=== PATIENT | female | born 1980 | race American Indian/Alaskan Native ===

== ENCOUNTER 2016-11-20 07:32 | Day surgery (SDC) | payer OTHER, MEDICAID ==
[2016-11-19 10:53] VITALS: BMI 64.2
[2016-11-20] MEDS ORDERED: Propofol 10 mg/ml Inj (20 ML) ONE ×2 (07:49→10:29)
[2016-11-20] MEDS ORDERED: Lidocaine Hydrochloride 5 ML INJ ONE (07:50)
[2016-11-20] MEDS ORDERED: Midazolam 2 MG/2 ML VIAL ONE (07:50)
[2016-11-20] MEDS ORDERED: Lidocaine 2% Jelly (5 ml) TOP ONE (07:50)
[2016-11-20] MEDS ORDERED: Lidocaine 1% Inj (20ml) ONE (08:05)
[2016-11-20] MEDS ORDERED: Bupivacaine 0.5% Inj(30mL) ONE (08:05)
[2016-11-20] MEDS ORDERED: MethylPREDNISolone Depo 40 mg/ml Inj ONE (08:05)
[2016-11-20] MEDS ORDERED: SENSORCAINE 0.5% W/EPINEPHRINE 50ML MDV IJ ONE (08:25)
[2016-11-20] MEDS ORDERED: Lactated Ringer's 1,000 ML IV ONE (08:27)
[2016-11-20] MEDS ORDERED: Succinylcholine 200 mg/10 ml Inj IV ONE (09:48)
[2016-11-20] MEDS ORDERED: Lidocaine 4% (Laryng-O-Jet) Kit MM ONE (09:49)
--- NOTE | 2016-11-20 09:55 | CP.SDSHP ---
Same Day Surgery H & P - History Proposed Procedure: Right Knee arthroscopy, possible ACL recon Pre-Op Diagnosis: right knee meniscal tear, possible ACL tear - Previous Medical/Surgical History Comments: morbid obesity. neck and low back pain Previous Surgical History: epidural injections to cervical and lumbar spine - Allergies Allergies: Allergies No Known Allergies Allergy (Verified 11/19/16 10:53) - Physical Exam Vital Signs: Vital Signs 11/20/16 11/20/16 08:03 08:05 Temperature 98.9 F Pulse Rate 84 84 Respiratory 20 Rate Blood Pressure 129/76 O2 Sat by Pulse 98 Oximetry Mental Status: Alert & Oriented x3 Heart: WNL Lungs: WNL GI: WNL - {Optional Preform as Required} Ortho: Other (Right knee: +ROm ankle/toes, sensation intact, +DP pulse, calves soft NT neg homans) Other Pertinent Findings: MRI at outside facility. medical clearance and labs on chart, reviewed - Impression Impression: 36F with right knee meniscal tear for arthroscopy, possible ACL recon Pt. Evaluated Today:Candidate for Anesthesia & Procedure: Yes - Date & Time Date: 11/20/16 Time: 09:59 Short Stay Discharge - Short Stay Discharge Admitting Diagnosis/Reason for Visit: M23.90 Disposition: HOME/ ROUTINE Referrals: Ced Lauren MD [Primary Care Provider] - Past Patient History - Past Medical History & Family History Past Medical History?: Yes - Past Social History Smoking Status: Never Smoked - CARDIAC Hx Cardiac Disorders: No - PULMONARY Hx Respiratory Disorders: No - NEUROLOGICAL Hx Neurological Disorder: No - HEENT Hx HEENT Problems: No - RENAL Hx Chronic Kidney Disease: No - ENDOCRINE/METABOLIC Hx Endocrine Disorders: No - HEMATOLOGICAL/ONCOLOGICAL Hx Blood Disorders: No - INTEGUMENTARY Hx Dermatological Problems: No - MUSCULOSKELETAL/RHEUMATOLOGICAL Hx Musculoskeletal Disorders: Yes Hx Back Pain: Yes - GASTROINTESTINAL Hx Gastrointestinal Disorders: No - GENITOURINARY/GYNECOLOGICAL Hx Genitourinary Disorders: No - PSYCHIATRIC Hx Psychophysiologic Disorder: No - SURGICAL HISTORY Hx Surgeries: Yes Other/Comment: EPIDUAL INJECTION NECK X3 AND BACK X2 - ANESTHESIA Hx Anesthesia: Yes Hx Anesthesia Reactions: No Hx Malignant Hyperthermia: No Has any member of the family had a problem w/ anesthesia?: No
[2016-11-20] MEDS ORDERED: Bupivacaine 0.25%-Epinephrine 1:200,000 (30 ml) Inj ONE (10:13)
[2016-11-20] MEDS ORDERED: Bupivacaine HCl/Epi 0.5% 1:20000 30 ML SOL IJ ONE (10:13)
[2016-11-20] MEDS ORDERED: Bupivacaine-Epi 0.5%-1:200,000 PF Inj IJ ONE ×2 (11:13)
[2016-11-20] MEDS ORDERED: HYDROmorphone 0.5 mg/0.5 ml ISec IVP PRN (11:55)
[2016-11-20] MEDS ORDERED: Lactated Ringer's 1,000 ML IV SCH (12:00)
[2016-11-20] MEDS ORDERED: Oxycodone/Acetaminophen 5/325 mg Tab PO PRN (12:07)
[2016-11-20 13:27] VITALS: RESP 20
[2016-11-20 16:50] VITALS: BP 114/67; PULSE 87; TEMP 98.5; O2SAT 96
--- NOTE | 2016-12-02 08:47 | OP ---
PROCEDURE DATE: 11/20/2016 PREOPERATIVE DIAGNOSES: 1. Right knee internal derangement. 2. Right knee arthrosis. 3. Right knee effusion. POSTOPERATIVE DIAGNOSES: 1. Right knee advanced chondromalacia, tricompartmental. 2. Right knee synovitis. 3. Mild right knee effusion. 4. Right knee complex medial and lateral meniscal tear. 5. Right knee large loose body 2 cm. PROCEDURE PERFORMED: 1. Right knee arthroscopy. 2. . 3. Partial medial and lateral meniscectomy. 4. Removal of 2 cm loose body. 5. Chondroplasty of medial femoral condyle and femoral trochlea. SURGEON: Ced Lauren MD ANESTHESIA: General. IV FLUID: Crystalloid. ESTIMATED BLOOD LOSS: Minimal. SPECIMEN: None. DRAINS: None. COMPLICATIONS: None. OPERATIVE PROCEDURE: The patient was brought to an operating room, transferred to an operating table, placed under a general anesthetic. The patient was then positioned, padded, prepped and draped in a standard surgical fashion for arthroscopy of the right knee. A tourniquet was placed high on the right thigh and an arthroscopic leg post was utilized. The timeout performed confirmed the patient, procedure, anatomic site. The expected skin incision was pre-marked with a skin marker. The leg was kept elevated for just over a minute and then the tourniquet was inflated. The expected skin incisions were pre-anesthetized with about 10 mL of Marcaine for both the expected medial and lateral portal sites. The anterolateral portal was then created first and the arthroscope was then advanced into the medial compartment under needle localization and anterior medial portal was then established and diagnostic arthroscopy commenced in the medial compartment. The patient was immediately noted to have advanced chondromalacia involving large weightbearing area in the medial compartment. On the tibial side, there was exposed bone, grade 3 to 4 chondromalacia. The affected area was more posteriorly. There was also complex meniscal tearing, which the meniscus already had a somewhat truncated appearance. The tearing extended into the body and posterior horn, and in those areas partial meniscectomy was performed with predominance of shaver back to stable tissue. Again, the meniscus did have a truncated appearance, and there was about 50% of normal volume of meniscal tissue that required meniscectomy and additional . The remaining meniscal tissue was stable to probing but certainly had extended into the red-white zone. Then the arthroscope was taken to the , which was very stenotic. Some anterior synovial tissue required removal. The patient was also noted to have mild synovitis throughout the joint , and a light synovectomy was performed anteriorly. Into the lateral compartment again, bone on bone changes mostly affecting the tibial plateau remaining articular cartilage grade 4. On the lateral femoral condyle in the weightbearing area around the sulcus terminalis, behind was again an area of advanced chondromalacia grade 3 to 4. A portion in this area did involve unstable articular cartilage, and chondroplasty was required. There was also meniscal tearing identified in the body as well as the posterior horn just in front of the popliteal hiatus, and partial meniscectomy was performed again with straight biter and shaver. Again, well over 50% of meniscal tissue required removal. Arthroscope was then brought into the patellofemoral articulation and obvious in the trochlea, there was grade 2 to 3 chondromalacia in the center of the trochlea. Also, the patella itself was affected centrally in the area of the median ridge with grade 2 chondromalacia. In both the medial and lateral gutters, there was mild synovitis, more significantly in the lateral gutter, a large loose body was encountered that was able to be removed en mello that was measured on the back table and was about 2 cm in length and just over a centimeter at its maximal area as well. At the conclusion of the procedure, degree of pus was evacuated from the joint. The arthroscopic instruments were removed and incisions were closed and sutured. Skin was then dried and joint was injected with remaining Marcaine approximately 30 mL . Sterile dressings were applied of Xeroform, 4x4, Webril, Serafin wrap. The patient tolerated the procedure well, ____ awoke from general anesthesia, taken to the recovery room, awake, alert, in good condition. Ced Lauren MD [facility] # [id number]
== END 2016-11-20 16:10 | disposition home or self-care (01) ==
LOC: H.OPSURG 07:32
PROVIDERS: ATTEND Specialist
DX: E66.01 Morbid (severe) obesity due to excess calories (principal); M54.5 Low back pain
CPT/HCPCS: 29880; 97116; 97161; G8978; G8979; G8980; J0171; J0330; J0690; J2250; J2704; J2765; J3010; J7030; J7120